=== PATIENT | female | born 1975 | race Caucasian/White ===

== ENCOUNTER → 2018-06-21 | Outpatient (CLI) | payer BC ==
[2014-05-23 12:50] VITALS: BP 159/73
[~2018-06-21] MED LIST: DICY10CA3 PO; HYDR-2761 PO
--- NOTE | 2018-06-21 15:52 | KCIC ---
Bilateral digital screening mammograms with 3-D tomosynthesis: Reason for examination: Routine baseline screening. Bilateral mammograms in CC and oblique projections were obtained with 2-D imaging and 3-D tomosynthesis imaging on a Siemens Inspiration unit and reviewed on the workstation. Interpretation was made with the benefit of CAD. The skin and nipples show no abnormalities. No abnormal axillary lymph nodes are seen. The breast parenchyma shows scattered fatty and fibroglandular density. (Breast density: Category B.) There is a small circumscribed nodule at approximately the 8:30 B position of the left breast measuring approximately 7 mm in greatest dimension. There is also a small circumscribed nodule measuring approximately 4.7 mm in size located centrally in the left breast seen on cc view only approximately 5.5 cm deep to the nipple. Recommend further evaluation with ultrasound. There are no other dominant masses, suspicious calcifications or architectural distortion. Impression: Small nodules seen in the left breast. Recommend further evaluation with ultrasound. BI-RADS Category 0: Incomplete. Needs additional imaging evaluation. "Our facility is accredited by the [employer]ammography [employer]." This patient's information has been entered into a reminder system for the patient to be notified with the results of her examination and a target date for the next mammogram. Electronically signed by: Marguerite Steen MD (06/21/2018 3:47 PM) [id number]
== END | disposition home or self-care (01) ==
LOC: KCIC MAMMO 14:24
PROVIDERS: ATTEND Obstetrics & Gynecology
DX: Z12.31 Encounter for screening mammogram for malignant neoplasm of breast (principal); N63.24 Unspecified lump in the left breast, lower inner quadrant
CPT/HCPCS: 77063; 77067

== ENCOUNTER → 2018-07-01 | Outpatient (CLI) | payer BC ==
[2014-05-23 12:50] VITALS: BP 159/73
--- NOTE | 2018-07-01 09:22 | KCIC ---
Left breast ultrasound: Reason for examination: Small nodules on baseline screening mammogram. Comparison is made to mammographic exam dated 06/21/2018. Ultrasound examination was performed of the left breast in the areas of mammographic concern and at the axilla. In the 8:00 position 5 cm from the nipple, there is a hypoechoic circumscribed lesion in parallel orientation measuring 5.8 mm in greatest dimension which probably represents a small fibroadenoma. In the 11:00 position 6 cm from the nipple, there is also a hypoechoic circumscribed lesion in parallel orientation measuring approximately 4.7 mm in greatest dimension also probably representing a small fibroadenoma. No suspicious-appearing nodules are seen. No abnormal appearing lymph nodes are seen in the left axilla. IMPRESSION: Small circumscribed nodules in the 8:00 and 11:00 positions which probably represents fibroadenoma. Recommend reevaluation in 6 months with ultrasound. BI-RADS Category 3: Probably Benign. "Our facility is accredited by the [employer]ammography [employer]." This patient's information has been entered into a reminder system for the patient to be notified with the results of her examination and a target date for the next mammogram. Electronically signed by: Marguerite Steen MD (07/01/2018 9:17 AM) [id number]
== END | disposition home or self-care (01) ==
LOC: KCIC US 08:34
PROVIDERS: ATTEND Obstetrics & Gynecology
DX: N63.24 Unspecified lump in the left breast, lower inner quadrant (principal); N63.22 Unspecified lump in the left breast, upper inner quadrant
CPT/HCPCS: 76641

== ENCOUNTER → 2019-01-02 | Outpatient (CLI) | payer BC ==
[2014-05-23 12:50] VITALS: BP 159/73
--- NOTE | 2019-01-02 13:50 | KCIC ---
Left breast ultrasound: Reason for examination: Follow-up nodules. Comparison is made to previous study dated 07/01/2018. Ultrasound examination was performed in the areas of previous ultrasound concern and the axilla. In the 8:00 position 5 cm from the nipple, no focal nodules identified. In the 11:00 position 6 cm from the nipple, there continue to be some focal fibrocystic changes but no discrete nodule. No other cystic or solid lesions are seen in the left breast. No abnormal appearing lymph nodes are seen in the left axilla. IMPRESSION: Continued presence of some focal fibrocystic changes at the 11:00 position but no nodule is seen at the 8:00 position. Recommend continued 6 month follow-up with ultrasound at the time of bilateral mammograms. BI-RADS Category 3: Probably Benign. "Our facility is accredited by the [employer]ammography [employer]." This patient's information has been entered into a reminder system for the patient to be notified with the results of her examination and a target date for the next mammogram. Electronically signed by: Marguerite Steen MD (01/02/2019 1:47 PM) [id number]
== END | disposition home or self-care (01) ==
LOC: KCIC US 13:02
PROVIDERS: ATTEND Obstetrics & Gynecology
DX: D24.2 Benign neoplasm of left breast (principal)
CPT/HCPCS: 76641

== ENCOUNTER → 2019-06-23 | Outpatient (CLI) | payer BC ==
[2014-05-23 12:50] VITALS: BP 159/73
--- NOTE | 2019-06-23 14:49 | KCIC ---
Bilateral diagnostic digital mammograms with 3-D tomosynthesis: Reason for examination: Follow-up nodules. Comparison is made to previous study dated 06/21/2018. Bilateral mammograms in CC and oblique projections were obtained with 2-D imaging and 3-D tomosynthesis imaging on a Siemens Inspiration unit and reviewed on the workstation. Interpretation was made with the benefit of CAD. The skin and nipples show no abnormalities. No abnormal axillary lymph nodes are seen. The breast parenchyma shows scattered fatty and fibroglandular density. (Breast density: Category B.) There continue to be small nodules seen in the left breast on CC view which are stable. There are no new dominant masses, suspicious calcifications or architectural distortion. Impression: No change in the nodular density seen mammographically in the left breast. Ultrasound to follow. BI-RADS Category 0: Incomplete. Needs additional imaging evaluation. Left breast ultrasound: Comparison is made to previous studies dated 01/02/2019 and 07/01/2018. At the 11:00 position 6 cm from the nipple, there continues to be 7.2 x 5.6 mm fibrocystic lesion which is stable. No other cystic or solid lesions are seen. No abnormal appearing lymph nodes are seen in the axilla. IMPRESSION: Stable fibrocystic type nodule at the 11:00 position. No suspicious abnormality seen. Recommend routine mammographic follow-up. BI-RADS Category 2: Benign. "Our facility is accredited by the [employer] Mammography [employer]." This patient's information has been entered into a reminder system for the patient to be notified with the results of her examination and a target date for the next mammogram. Electronically signed by: Marguerite Steen MD (06/23/2019 2:45 PM) [id number]
== END | disposition home or self-care (01) ==
LOC: KCIC MAMMO 09:39
PROVIDERS: ATTEND Obstetrics & Gynecology
DX: N64.89 Other specified disorders of breast (principal); N63.22 Unspecified lump in the left breast, upper inner quadrant
CPT/HCPCS: 76641; 77066; G0279; 77062

== ENCOUNTER → 2021-08-04 | Outpatient (CLI) | payer BC ==
[2014-05-23 12:50] VITALS: BP 159/73
--- NOTE | 2021-08-04 11:06 | KCIC ---
Bilateral diagnostic digital mammograms with 3-D tomosynthesis: Reason for examination: Left breast pain for one week laterally at approximately the 3:00 position. D alka feels a dense area at 3:00. Comparison is made to previous studies dated 06/23/2019 and 06/21/2018. Bilateral mammograms in CC and oblique projections were obtained with 2-D imaging and 3-D tomosynthes is imaging on a Siemens Inspiration unit and reviewed on the workstation. Interpretation was made wit h the benefit of CAD. The skin and nipples show no abnormalities. No abnormal axillary lymph nodes are seen. The breast par enchyma is heterogeneously dense. (Breast density: Category C.) There continue to be small parenchyma l densities at the 6:00 B and 8:00 B positions of the left breast which are stable. There are no new dominant masses, suspicious calcifications or architectural distortion. Benign calcifications are pre sent. Impression: No evidence of malignancy. Ultrasound to follow. Your patient's mammogram demonstrates that she has dense breast tissue (breast density category C or D), which could hide abnormalities, and if she has other risk factors for breast cancer that have bee n identified, she might benefit from supplemental screening tests that may be suggested by you as her ordering physician. Dense breast tissue, in and of itself, is a relatively common condition. Therefo re, this information is not provided to cause undue concern, but rather to raise your awareness and t o promote discussion with your patient regarding the presence of other risk factors, in addition to d ense breast tissue. Your patient's mammography results will be sent to her. BI-RAD Category 0: Incomplete. Needs additional imaging evaluation. Left breast ultrasound: Ultrasound examination of the left breast and axilla was performed. There is no discrete cystic or solid nodule seen in the left breast laterally. No abnormal appearing lymph nodes are seen in the left axilla. IMPRESSION: No focal abnormality evident in the left breast. Recommend routine mammographic follow-up. BI-RADS Category 2: Benign. "Our facility is accredited by the [employer] Mammography [employer]." This patient's information has been entered into a reminder system for the patient to be notified wit h the results of her examination and a target date for the next mammogram. Electronically signed by: Marguerite Steen MD (08/04/2021 11:04 AM) [place] [id number]
== END ==
LOC: KCIC MAMMO 09:49
PROVIDERS: ATTEND Family Medicine
DX: R92.1 Mammographic calcification found on diagnostic imaging of breast (principal); N64.89 Other specified disorders of breast; N64.4 Mastodynia
CPT/HCPCS: 76641; 77066; G0279; 77062